=== PATIENT | female | born 1965 | race Caucasian/White ===

== ENCOUNTER → 2018-08-19 | Outpatient (CLI) | payer OTHER ==
[~2018-08-19] MED LIST: ALBU90OI6 INH; CHOL10002 PO; CYAN500; CYAN500 PO; HYDCHL25 PO; LEVO-T112 MCG PO; LORA10 PO; MEGARED OMEGA-1 EAC1 PO; NAPR220 PO; POTA10T PO; TECFIDERA240 MG PO
[2018-08-19 19:35] LABS: BASOPHILS ABSOLUTE AUTO 0.05 K/mm3 (0.00-0.23); BASOPHILS PERCENT AUTO 0 % (0-2); EOSINOPHILS ABSOLUTE AUTO 0.28 K/mm3 (0.00-0.68); EOSINOPHILS PERCENT AUTO 2 % (0-6); Hemoglobin 14.6 g/dL (11.5-16.0); IMMATURE GRAN ABSOLUTE AUTO 0.04 K/mm3 (0.00-0.10); IMMATURE GRAN PERCENT AUTO 0 % (0-1); LYMPHOCYTES ABSOLUTE AUTO 3.82 K/mm3 (0.84-5.20); LYMPHOCYTES PERCENT AUTO 31 % (21-46); MONOCYTES PERCENT AUTO 6 % (4-13); Mean Corpuscular HGB 28.3 pg (26.0-34.0); Mean Corpuscular HGB Conc 32.4 g/dL (31.5-36.5); Mean Corpuscular Volume 87 fL (80-100); Mean Platelet Volume 9.9 fL (9.1-12.4); NEUTROPHILS ABSOLUTE AUTO 7.51 K/mm3 (1.96-9.15); NEUTROPHILS PERCENT AUTO 61 % (41-73); Platelet Count 340 K/mm3 (150-400); RDW Coefficient Variation 15.7 % (11.7-14.2); RDW Standard Deviation 50.5 fL (35.1-46.3); Red Blood Cell Count 5.15 M/mm3 (3.80-5.20)
[2018-08-19 19:54] LABS: Alanine Aminotransfer (ALT/SGP 22 U/L (12-78); Albumin, Blood 3.9 g/dL (3.4-5.0); Albumin/Globulin Ratio 1.1 (0.8-1.8); Alk Phos 79 U/L (50-136); Anion Gap 7 mmol/L (6-16); Aspartate Aminotrans (AST/SGOT 11 U/L (12-37); Blood Urea Nitrogen 15 mg/dL (8-24); CHOL/HDL RATIO 5.9; CO2, Blood 26 mmol/L (21-32); Calcium, Blood 8.9 mg/dL (8.5-10.1); Chloride, Blood 107 mmol/L (98-108); Cholesterol 214 mg/dL (50-200); Free Thyroxine 1.48 ng/dL (0.70-1.60); Globulin, Blood 3.5 g/dL (2.2-4.0); Glucose, Blood 94 mg/dL (70-99); HDL Cholesterol 36 mg/dL (>39); LDL/HDL RATIO 4.5; Low Density Lipoprotein Chol 162 mg/dL (0-110); Potassium, Blood 3.8 mmol/L (3.5-5.5); Sodium, Blood 140 mmol/L (136-145); Total Protein, Blood 7.4 g/dL (6.4-8.2); Triglycerides 82 mg/dL (30-160); Very Low Density Lipoprot Chol 16 mg/dL (6-32)
[2018-08-19 20:00] LABS: Bilirubin, Total 0.6 mg/dL (0.1-1.0); Bun/Creatinine Ratio 26.8 (12.0-20.0); Creatinine, Blood 0.56 mg/dL (0.40-1.00); Glomerular Filtration Rate >60 (60-)
== END | disposition home or self-care (01) ==
LOC: LAB SHORT 19:04 → LAB 19:04
PROVIDERS: Family Medicine
DX: E78.5 Hyperlipidemia, unspecified (principal); E03.9 Hypothyroidism, unspecified; I10 Essential (primary) hypertension
CPT/HCPCS: 80053; 80061; 84439; 84443; 85025

== ENCOUNTER 2020-11-29 00:28 | Day surgery (SDC) | payer OTHER ==
[2020-11-29] MEDS ORDERED: UBID10 PO (15:08)
[2020-11-29] MEDS ORDERED: Flonase 0.05% N16 GM (15:09)
[2020-11-29] MEDS ORDERED: Garlic500 MG PO (15:10)
[2020-11-29] MEDS ORDERED: DIAZ2 PO (15:10)
[2020-11-29] MEDS ORDERED: C COMPLEX1000 M1 PO (15:11)
== END 2020-11-29 15:38 | disposition home or self-care (01) ==
LOC: ATC 00:28
DX: G35 Multiple sclerosis (principal); Z88.5 Allergy status to narcotic agent; Z88.8 Allergy status to other drugs, medicaments and biological substances; Z87.891 Personal history of nicotine dependence
CPT/HCPCS: J2930; J7050

== ENCOUNTER 2020-11-30 03:57 | Day surgery (SDC) | payer OTHER ==
[~2020-11-30 03:57] MED LIST changes: +C COMPLEX1000 M1 PO; +DIAZ2 PO; +Flonase 0.05% N16 GM; +Garlic500 MG PO; +UBID10 PO
== END 2020-11-30 16:15 | disposition home or self-care (01) ==
LOC: ATC 03:57
DX: G35 Multiple sclerosis (principal); E04.1 Nontoxic single thyroid nodule; Z87.891 Personal history of nicotine dependence; Z88.5 Allergy status to narcotic agent; Z88.8 Allergy status to other drugs, medicaments and biological substances
CPT/HCPCS: 96365; 96366; J2930; J7050

== ENCOUNTER 2020-12-01 00:50 | Day surgery (SDC) | payer OTHER | END 2020-12-01 15:29 | disposition home or self-care (01) | LOC: ATC 00:50 | DX: G35 Multiple sclerosis (principal); Z88.5 Allergy status to narcotic agent; Z88.8 Allergy status to other drugs, medicaments and biological substances; Z87.891 Personal history of nicotine dependence | CPT/HCPCS: 96365; 96366; J2930; J7050 ==

== ENCOUNTER 2020-12-02 01:04 | Day surgery (SDC) | payer OTHER | END 2020-12-02 15:13 | disposition home or self-care (01) | LOC: ATC 01:04 | DX: G35 Multiple sclerosis (principal); E07.9 Disorder of thyroid, unspecified; Z88.6 Allergy status to analgesic agent; Z88.5 Allergy status to narcotic agent; Z88.8 Allergy status to other drugs, medicaments and biological substances; Z87.891 Personal history of nicotine dependence | CPT/HCPCS: J2930; J7050 ==

== ENCOUNTER 2020-12-03 00:52 | Day surgery (SDC) | payer OTHER ==
--- NOTE | 2020-12-03 14:40 | NUR ---
REVIEWED SOLUMEDROL DOSE AND RATE WITH PHARMACY. OK PER ALEXEI TO INFUSE PER [facility] RATE OF 1000MG IN A BAG WITH TOTAL VOLUME OF 66ML OVER 30 MIN UNLESS PT WANTS TO RECEIVE IT IN 250ML FLUIDS OVER 1.5HRS. PT DECLINES 250ML INFUSION.
== END 2020-12-03 14:19 | disposition home or self-care (01) ==
LOC: ATC 00:52
DX: G35 Multiple sclerosis (principal); E04.1 Nontoxic single thyroid nodule; Z87.891 Personal history of nicotine dependence; Z88.5 Allergy status to narcotic agent; Z88.8 Allergy status to other drugs, medicaments and biological substances
CPT/HCPCS: J2930